=== PATIENT | female | born 1985 | race Caucasian/White ===

== ENCOUNTER 2019-05-13 20:26 | Emergency (ER) | payer OTHER ==
[2019-05-13 21:15] VITALS: BP 126/67; PULSE 83
[2019-05-13 21:52] LABS: ANION GAP 13.9; CHLORIDE,CL 100 mmol/L (101-111); SODIUM,NA 133 mmol/L (135-145)
--- NOTE | 2019-05-13 22:22 | EDM.PDOC ---
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 Approximately 10weeks . Confirmed US done on 04-19 IUP 6 +1 week. Also URI with congestion, question if influenza and that was causing backache Lower Abdomen Pain Score (Numeric/FACES): 8 - Related Data Allergies Allergy/AdvReac Type Severity Reaction Status Date / Time cats Allergy Sneezing Uncoded 05/13/19 21:15 Home Meds: Home Meds Levothyroxine [Synthroid] 125 mcg PO DAILY 07/10/13 [History] PNV95/Ferrous Fumarate/FA [ Multivitamins] 1 each PO DAILY 07/10/13 [ History] Pantoprazole [ProTONIX Granules] 40 mg PO DAILY 07/10/13 [History] Ferrous Sulfate 325 mg PO DAILY 09/17/15 [History] Ascorbate Calcium [Vitamin C] 1,000 mg PO DAILY 02/28/18 [History] Sertraline [Zoloft] 50 mg PO DAILY 03/03/18 [History] Acetaminophen [Tylenol] 650 mg PO Q6H PRN tablet 03/19/18 [Rx] Acetaminophen/oxyCODONE [Percocet 325-5 MG] 1 tab PO Q4H PRN #40 tablet [Rx] Docusate Sodium [Colace] 100 mg PO Q12H PRN cap 03/19/18 [Rx] Ibuprofen [Motrin] 800 mg PO Q8H PRN tablet 03/19/18 [Rx] Past Medical History HEENT History: Reports: None Cardiovascular History: Reports: None Respiratory History: Reports: None Gastrointestinal History: Reports: GERD Genitourinary History: Reports: None 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: , Other (See Below) Other OUTREACH ASSISTANT History: hx abnormal pap, hx herpes Musculoskeletal History: Reports: Other (See Below) Other Musculoskeletal History: spondylolisthesis Neurological History: Reports: Migraines Psychiatric History: Reports: Anxiety, Depression Endocrine/Metabolic History: Reports: Diabetes, Gestational, Hypothyroidism Other Endocrine/Metabolic History: diet controlled gdm Hematologic History: Reports: Anemia Immunologic History: Reports: None Oncologic (Cancer) History: Reports: None Dermatologic History: Reports: Eczema - Infectious Disease History Infectious Disease History: Reports: Chicken Pox, Herpes - Past Surgical History Head Surgeries/Procedures: Reports: None HEENT Surgical History: Reports: Adenoidectomy, Tonsillectomy GI Surgical History: Reports: Colonoscopy, EGD, Hernia Repair/Other Endocrine Surgical History: Reports: None Neurological Surgical History: Reports: None Musculoskeletal Surgical History: Reports: Arthroscopic Knee, Other (See Below) Other Musculoskeletal Surgeries/Procedures:: bilateral leg vein surgery Social & Family History - Family History Family Medical History: Noncontributory - Tobacco Use Smoking Status *Q: Never Smoker Second Hand Smoke Exposure: No - Caffeine Use Caffeine Use: Reports: None - Recreational Drug Use Recreational Drug Use: No - Sexual History Sexual History: Reports: Sexually Active, Single Partner - Living Situation & Occupation Living situation: Reports: , with Family ED ROS GENERAL - Review of Systems Review Of Systems: Comprehensive ROS is negative, except as noted in HPI. ED EXAM - Physical Exam Exam: See Below Exam Limited By: No Limitations General Appearance: Alert, Anxious Eye Exam: Bilateral Eye: EOMI Ears: Normal External Exam, Hearing Grossly Normal, Normal TMs Nose: Normal Inspection, Nasal Drainage Throat/Mouth: Normal Inspection, Normal Lips, Normal Voice Head: Atraumatic, Normocephalic Neck: Normal Inspection, Full Range of Motion Respiratory/Chest: No Respiratory Distress, Lungs Clear, Normal Breath Sounds Cardiovascular: Normal Peripheral Pulses, Regular Rate, Rhythm GI/Abdominal Exam: Normal Bowel Sounds, Soft, Tender (lower abdomen bilateral) (Female) Exam: Normal External Exam, Other (scant old blood in vaginal vault. Cervix posterior, Not directly visulaized. ). No: Tissue Present in Cervix/Vagina Back Exam: Full Range of Motion Extremities: Normal Inspection, No Pedal Edema Neurological: Alert, Oriented, Normal Cognition Psychiatric: Normal Mood, Anxious Skin Exam: Warm, Dry, Intact, Normal Color Course - Vital Signs Last Recorded V/S: Last Vital Signs Temp 98.2 F 05/13/19 21:11 Pulse 83 05/13/19 21:11 Resp 18 05/13/19 21:11 BP 126/67 05/13/19 21:11 Pulse Ox 96 05/13/19 21:11 - Orders/Labs/Meds Orders: Active Orders 24 hr Category Date Time Status OB Ltd 1 or More Fetus [US] Urgent Exams 05/13/19 22:09 Taken Labs: Laboratory Tests 05/13/19 05/13/19 05/13/19 Range/Units 21:22 21:30 21:30 WBC 9.1 (5.0-10.0) 10^3/uL RBC 4.08 L (4.2-5.4) 10^6/uL Hgb 12.7 D (12.0-16.0) g/dL Hct 37.8 (37.0-47.0) % MCV 92.6 D (80-100) fL MCH 31.1 (27.0-34.0) pg MCHC 33.6 (33.0-35.0) g/dL Plt Count 267 (150-450) 10^3/uL Neut % (Auto) 74.9 (42.2-75.2) % Lymph % (Auto) 15.5 L (20.5-50.1) % [place] % (Auto) 8.0 (2-8) % Eos % (Auto) 1.4 (1.0-3.0) % Baso % (Auto) 0.2 (0.0-1.0) % Sodium 133 L (135-145) mmol/L Potassium 3.9 (3.6-5.0) mmol/L Chloride 100 L (101-111) mmol/L Carbon Dioxide 23.0 (21.0-31.0) mmol/L Anion Gap 13.9 BUN 12 (7-18) mg/dL Creatinine 0.5 L (0.6-1.3) mg/dL Est Cr Clr Drug Dosing 147.01 mL/min Estimated GFR (MDRD) > 60 Glucose 99 (74-105) mg/dL Calcium 9.4 (8.4-10.2) mg/dl HCG, Quant (0-25) mIU/ml Beta HCG, Quant mIU/ml Urine Color Light yellow (YELLOW) Urine Appearance Slightly cloudy (CLEAR) Urine pH 6.5 (5.0-9.0) Ur Specific [place] <= 1.005 (1.005-1.030) Urine Protein Negative (NEGATIVE) Urine Glucose (UA) Negative (NEGATIVE) Urine Ketones Negative (NEGATIVE) Urine Occult Blood Small H (NEGATIVE) Urine Nitrite Negative (NEGATIVE) Urine Bilirubin Negative (NEGATIVE) Urine Urobilinogen 0.2 (0.2-1.0) mg/dL Ur Leukocyte Esterase Negative (NEGATIVE) Urine RBC 0-5 /HPF Urine WBC Not seen (0-5/HPF) /HPF Ur Epithelial Cells Few (NOT SEEN) /HPF Urine Bacteria Few (0-FEW/HPF) /HPF 05/13/19 Range/Units 21:30 WBC (5.0-10.0) 10^3/uL RBC (4.2-5.4) 10^6/uL Hgb (12.0-16.0) g/dL Hct (37.0-47.0) % MCV (80-100) fL MCH (27.0-34.0) pg MCHC (33.0-35.0) g/dL Plt Count (150-450) 10^3/uL Neut % (Auto) (42.2-75.2) % Lymph % (Auto) (20.5-50.1) % [place] % (Auto) (2-8) % Eos % (Auto) (1.0-3.0) % Baso % (Auto) (0.0-1.0) % Sodium (135-145) mmol/L Potassium (3.6-5.0) mmol/L Chloride (101-111) mmol/L Carbon Dioxide (21.0-31.0) mmol/L Anion Gap BUN (7-18) mg/dL Creatinine (0.6-1.3) mg/dL Est Cr Clr Drug Dosing mL/min Estimated GFR (MDRD) Glucose (74-105) mg/dL Calcium (8.4-10.2) mg/dl HCG, Quant > 1359 H (0-25) mIU/ml Beta HCG, Quant 70965 mIU/ml Urine Color (YELLOW) Urine Appearance (CLEAR) Urine pH (5.0-9.0) Ur Specific [place] (1.005-1.030) Urine Protein (NEGATIVE) Urine Glucose (UA) (NEGATIVE) Urine Ketones (NEGATIVE) Urine Occult Blood (NEGATIVE) Urine Nitrite (NEGATIVE) Urine Bilirubin (NEGATIVE) Urine Urobilinogen (0.2-1.0) mg/dL Ur Leukocyte Esterase (NEGATIVE) Urine RBC /HPF Urine WBC (0-5/HPF) /HPF Ur Epithelial Cells (NOT SEEN) /HPF Urine Bacteria (0-FEW/HPF) /HPF - Radiology Interpretation Free Text/Narrative:: Name: JASIEL LOVE Age: 33Years F Date: 05/13/2019 SSN: -- : 1985 Study: US LTD ONE OR MORE FETUSES Requesting Physician: TRICIA LEA Images: 32 Addl Studies: Provided Clinical History: Contrast: Without Contrast Medium: Contrast Amount: Contrast Method: Page 1 of 2 PROCEDURE INFORMATION: Exam: US , Limited Exam date and time: 05/13/2019 10:34 PM Age: 33 years old Clinical indication: complicated by abdominal or pelvic pain; Other: Uterine cramping; Gestational age or lmp: 9+6; ; Patient HX: Cramping and spotting TECHNIQUE: Imaging protocol: Real-time ultrasound of the maternal uterus with image documentation. Exam focused on the clinical indication. COMPARISON: No relevant prior studies available. FINDINGS: GESTATION: Gestation: Single live intrauterine embryo. Heart rate: 172 bpm. Placenta: 1.0 x 0.8 x 0.5 cm subchorionic hematoma. BIOMETRY: Estimated gestational age: 9 weeks 6 days. [place]-Rump length: 2.9 cm. IMPRESSION: Single live intrauterine embryo with a sonographic gestational age of 9 weeks 6 days. MARY is 12/13/2019 1.0 x 0.8 x 0.5 cm subchorionic hematoma. JASIEL LOVE | Final Radiology Report CONFIDENTIALITY STATEMENT This report is intended only for use by the referring physician, and only in accordance with law. If you received this in error, call [phone]. Page 2 of 2 Thank you for allowing us to participate in the care of your patient. Dictated and Authenticated by: Bill Ahmadi MD 05/13/2019 11:17 PM Central Time ([place] & [place] - Re-Assessments/Exams Free Text/Narrative Re-Assessment/Exam: Results of US reviewed with patient. Off work until seen by PCP on Wednesday. Departure - Departure Time of Disposition: 23:26 Disposition: Home, Self-Care 01 Condition: Good Clinical Impression: First trimester bleeding URI (upper respiratory infection) Qualifiers: URI type: unspecified viral URI Qualified Code(s): J06.9 - Acute upper respiratory infection, unspecified Subchorionic hematoma in first trimester Qualifiers: Fetus number: single or unspecified fetus Qualified Code(s): O41.8X10 - Other specified disorders of amniotic fluid and membranes, first trimester, not applicable or unspecified - Discharge Information *PRESCRIPTION DRUG MONITORING PROGRAM REVIEWED*: No *COPY OF PRESCRIPTION DRUG MONITORING REPORT IN PATIENT JACQUELINE: No Instructions: Subchorionic Hematoma Forms: ED Department Discharge Additional Instructions: light activity no heavy lifting increase fluids follow up with OB on Wednesday Urgent follow up severe beeding, dizziness or fever Sepsis Event Note - Evaluation Sepsis Screening Result: No Definite Risk - Focused Exam Vital Signs: Vital Signs Temp Pulse Resp BP Pulse Ox 05/13/19 21:11 98.2 F 83 18 126/67 96 Date Exam was Performed: 05/14/19 Time Exam was Performed: 02:45 - My Orders Last 24 Hours: My Active Orders 05/13/19 22:09 OB Ltd 1 or More Fetus [US] Urgent - Assessment/Plan Last 24 Hours: My Active Orders 05/13/19 22:09 OB Ltd 1 or More Fetus [US] Urgent"
== END 2019-05-13 23:35 | disposition home or self-care (01) ==
LOC: DL.ED 20:26
DX: O20.9 Hemorrhage in early pregnancy, unspecified (principal); J06.9 Acute upper respiratory infection, unspecified; O99.511 Diseases of the respiratory system complicating pregnancy, first trimester; O41.8X10 Other specified disorders of amniotic fluid and membranes, first trimester, not applicable or unspecified; O99.611 Diseases of the digestive system complicating pregnancy, first trimester; K21.9 Gastro-esophageal reflux disease without esophagitis; O99.341 Other mental disorders complicating pregnancy, first trimester; F41.9 Anxiety disorder, unspecified; F32.9 Major depressive disorder, single episode, unspecified; O99.281 Endocrine, nutritional and metabolic diseases complicating pregnancy, first trimester; E03.9 Hypothyroidism, unspecified; O24.410 Gestational diabetes mellitus in pregnancy, diet controlled; Z3A.09 9 weeks gestation of pregnancy; Z91.09 Other allergy status, other than to drugs and biological substances; Z79.899 Other long term (current) drug therapy; Z79.890 Hormone replacement therapy
CPT/HCPCS: 36415; 76815; 80048; 81001; 84702; 85025; 87210; 87804; 99284; 99284-25

== ENCOUNTER 2019-05-24 05:54 | Emergency (ER) | payer OTHER ==
[2019-05-24 06:05] VITALS: BP 122/69; PULSE 85
[2019-05-24] MEDS ORDERED: Sodium Chloride 0.9% 10 ML Syringe FLUSH PRN (06:23)
--- NOTE | 2019-05-24 06:41 | EDM.PDOC ---
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 It is approximately 11 weeks gestation 5 para 4. On 05/13/19 the patient had a ultrasound completed in the emergency department for vaginal bleeding was noted to have a subchorionic hemorrhage. Starting earlier this morning she had increasing cramping and then passed a rather large clot. After she passed a clot she had almost complete resolution of the cramping. She still has a small amount of vaginal bleeding that is been kind of steady since her last ultrasound. She does complain of intermittent lightheadedness no weakness or dizziness. NO chest pain SOB or syncope. No flank pain dysuria or urinary frequency. NO fever no chills. Pelvic Pain Score (Numeric/FACES): 7 - Related Data Allergies Allergy/AdvReac Type Severity Reaction Status Date / Time cats Allergy Sneezing Uncoded 05/24/19 05:59 Home Meds: Home Meds Levothyroxine [Synthroid] 125 mcg PO DAILY 07/10/13 [History] PNV95/Ferrous Fumarate/FA [ Multivitamins] 1 each PO DAILY 07/10/13 [ History] Pantoprazole [ProTONIX Granules] 40 mg PO DAILY 07/10/13 [History] Ferrous Sulfate 325 mg PO DAILY 09/17/15 [History] Ascorbate Calcium [Vitamin C] 1,000 mg PO DAILY 02/28/18 [History] Sertraline [Zoloft] 50 mg PO DAILY 03/03/18 [History] Acetaminophen [Tylenol] 650 mg PO Q6H PRN tablet 03/19/18 [Rx] Acetaminophen/oxyCODONE [Percocet 325-5 MG] 1 tab PO Q4H PRN #40 tablet [Rx] Docusate Sodium [Colace] 100 mg PO Q12H PRN cap 03/19/18 [Rx] Ibuprofen [Motrin] 800 mg PO Q8H PRN tablet 03/19/18 [Rx] Past Medical History HEENT History: Reports: None Cardiovascular History: Reports: None Respiratory History: Reports: None Gastrointestinal History: Reports: GERD Genitourinary History: Reports: None 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: , 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 (See Below) 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 FLASH DESIGNER History: hx abnormal pap, hx herpes Musculoskeletal History: Reports: Other (See Below) Other Musculoskeletal History: spondylolisthesis Neurological History: Reports: Migraines Psychiatric History: Reports: Anxiety, Depression Endocrine/Metabolic History: Reports: Diabetes, Gestational, Hypothyroidism Other Endocrine/Metabolic History: diet controlled gdm Hematologic History: Reports: Anemia Immunologic History: Reports: None Oncologic (Cancer) History: Reports: None Dermatologic History: Reports: Eczema - Infectious Disease History Infectious Disease History: Reports: Chicken Pox, Herpes - Past Surgical History Head Surgeries/Procedures: Reports: None HEENT Surgical History: Reports: Adenoidectomy, Tonsillectomy GI Surgical History: Reports: Colonoscopy, EGD, Hernia Repair/Other Endocrine Surgical History: Reports: None Neurological Surgical History: Reports: None Musculoskeletal Surgical History: Reports: Arthroscopic Knee, Other (See Below) Other Musculoskeletal Surgeries/Procedures:: bilateral leg vein surgery Social & Family History - Family History Family Medical History: Noncontributory - Tobacco Use Smoking Status *Q: Never Smoker Second Hand Smoke Exposure: No - Caffeine Use Caffeine Use: Reports: Coffee, Soda - Recreational Drug Use Recreational Drug Use: No - Sexual History Sexual History: Reports: Sexually Active, Single Partner - Living Situation & Occupation Living situation: Reports: , with Family ED ROS GENERAL - Review of Systems Review Of Systems: Comprehensive ROS is negative, except as noted in HPI. ED EXAM, GI/ABD - Physical Exam Exam: See Below Exam Limited By: No Limitations General Appearance: Alert, WD/WN, No Apparent Distress Eyes: Bilateral: EOMI Ears: Normal External Exam, Normal Canal, Normal TMs Nose: Normal Inspection Throat/Mouth: Normal Inspection, Normal Lips, Normal Oropharynx Head: Atraumatic, Normocephalic Neck: Normal Inspection, Supple Respiratory/Chest: No Respiratory Distress, Lungs Clear, No Accessory Muscle Use Cardiovascular: Normal Peripheral Pulses, Regular Rate, Rhythm GI/Abdominal Exam: Normal Bowel Sounds, Soft Back Exam: Normal Inspection Extremities: Normal Inspection, Normal Range of Motion, Normal Capillary Refill Neurological: Alert, Oriented, Normal Cognition, No Motor/Sensory Deficits Psychiatric: Normal Affect, Normal Mood Skin Exam: Warm, Dry, Intact, Normal Color Course - Vital Signs Last Recorded V/S: Last Vital Signs Temp 35.9 C L 05/24/19 06:00 Pulse 85 05/24/19 06:00 Resp 16 05/24/19 06:00 BP 122/69 05/24/19 06:00 Pulse Ox 95 05/24/19 06:00 - Orders/Labs/Meds Orders: Active Orders 24 hr Category Date Time Status Peripheral IV Care [RC] . DIRECTED Care 05/24/19 06:23 Active OB Ltd 1 or More Fetus [US] Urgent Exams 05/24/19 06:41 Taken DRUG SCREEN URINE BIORAD [URCHEM] Stat Lab 05/24/19 06:25 Ordered Ketorolac [Toradol] Med 05/24/19 07:26 Once 30 mg IVPUSH ONETIME ONE Sodium Chloride 0.9% [Saline Flush] Med 05/24/19 06:23 Active 10 ml FLUSH ASDIRECTED PRN Peripheral IV Insertion Adult [OM.PC] Stat Oth 05/24/19 06:23 Ordered Medication Orders Ketorolac Tromethamine (Toradol) 30 mg IVPUSH ONETIME ONE Stop: 05/24/19 07:27 Sodium Chloride (Saline Flush) 10 ml FLUSH ASDIRECTED PRN PRN Reason: Keep Vein Open Last Admin: 05/24/19 06:16 Dose: 10 ml Labs: Laboratory Tests 05/24/19 05/24/19 05/24/19 Range/Units 06:15 06:15 06:15 WBC 9.7 (5.0-10.0) 10^3/uL RBC 4.06 L (4.2-5.4) 10^6/uL Hgb 12.7 (12.0-16.0) g/dL Hct 37.7 (37.0-47.0) % MCV 92.9 (80-100) fL MCH 31.3 (27.0-34.0) pg MCHC 33.7 (33.0-35.0) g/dL Plt Count 319 (150-450) 10^3/uL Neut % (Auto) 69.1 (42.2-75.2) % Lymph % (Auto) 23.6 (20.5-50.1) % [place] % (Auto) 5.9 (2-8) % Eos % (Auto) 1.2 (1.0-3.0) % Baso % (Auto) 0.2 (0.0-1.0) % Sodium 133 L (135-145) mmol/L Potassium 4.1 (3.6-5.0) mmol/L Chloride 99 L (101-111) mmol/L Carbon Dioxide 22.0 (21.0-31.0) mmol/L Anion Gap 16.1 BUN 12 (7-18) mg/dL Creatinine 0.4 L (0.6-1.3) mg/dL Est Cr Clr Drug Dosing 183.77 mL/min Estimated GFR (MDRD) > 60 BUN/Creatinine Ratio 30.00 Glucose 98 (74-105) mg/dL Calcium 9.8 (8.4-10.2) mg/dl Total Bilirubin 0.3 (0.2-1.0) mg/dL AST 27 (10-42) IU/L ALT 29 (10-60) IU/L Alkaline Phosphatase 96 (42-121) IU/L Total Protein 7.5 (6.7-8.2) g/dl Albumin 3.8 (3.2-5.5) g/dl Globulin 3.7 Albumin/Globulin Ratio 1.03 HCG, Quant > 1350 H (0-25) mIU/ml Beta HCG, Quant 33808 mIU/ml Meds: Medications Generic Name Dose Route Start Last Admin Trade Name Freq PRN Reason Stop Dose Admin Ketorolac Tromethamine 30 mg 05/24/19 07:26 Toradol IVPUSH 05/24/19 07:27 ONETIME ONE Sodium Chloride 10 ml 05/24/19 06:23 05/24/19 06:16 Saline Flush FLUSH 10 ml ASDIRECTED PRN Administration Keep Vein Open - Radiology Interpretation Free Text/Narrative:: US per tech no IUP noted some residual blood or clots in the uterus. Miscarriage. - Re-Assessments/Exams Free Text/Narrative Re-Assessment/Exam: 05/24/19 07:15 Report at change of shift given to Dr. Dorman pt is in Ultrasound. 05/24/19 07:31 US miscarriage. Bleeding is almost resolved. Comfort given to the mother and natural course of miscarriage explained to the patient. SHe was comfortable with the plan and her questions answered. Departure - Departure Time of Disposition: 07:28 Disposition: Home, Self-Care 01 Clinical Impression: Miscarriage - Discharge Information Instructions: Pain Medicine Instructions, [id number], Miscarriage Forms: ED Department Discharge Additional Instructions: Tylenol and or Ibuprofen as needed for pain and cramping. If pain not controlled with above [place], 1 tablet every 6 hrs as needed for pain. Caution sedation RX given to the patient. #9 Return to the ED if new or worsening symptoms Recheck with PCP OB if bleeding not slowing or worsening. Sepsis Event Note - Evaluation Sepsis Screening Result: No Definite Risk - Focused Exam Vital Signs: Vital Signs Temp Pulse Resp BP Pulse Ox 05/24/19 06:00 35.9 C L 85 16 122/69 95 Date Exam was Performed: 05/24/19 Time Exam was Performed: 07:28 - My Orders Last 24 Hours: My Active Orders 05/24/19 06:23 Peripheral IV Care [RC] . DIRECTED Sodium Chloride 0.9% [Saline Flush] 10 ml FLUSH ASDIRECTED PRN Peripheral IV Insertion Adult [OM.PC] Stat 05/24/19 06:25 DRUG SCREEN URINE BIORAD [URCHEM] Stat 05/24/19 06:41 OB Ltd 1 or More Fetus [US] Urgent 05/24/19 07:26 Ketorolac [Toradol] 30 mg IVPUSH ONETIME ONE - Assessment/Plan Last 24 Hours: My Active Orders 05/24/19 06:23 Peripheral IV Care [RC] . DIRECTED Sodium Chloride 0.9% [Saline Flush] 10 ml FLUSH ASDIRECTED PRN Peripheral IV Insertion Adult [OM.PC] Stat 05/24/19 06:25 DRUG SCREEN URINE BIORAD [URCHEM] Stat 05/24/19 06:41 OB Ltd 1 or More Fetus [US] Urgent 05/24/19 07:26 Ketorolac [Toradol] 30 mg IVPUSH ONETIME ONE Assessment:: 1st trimester spontaneous miscarriage. Plan: Tylenol and or Ibuprofen as needed for pain and cramping. If pain not controlled with above [place], 1 tablet every 6 hrs as needed for pain. Caution sedation RX given to the patient. #9 Return to the ED if new or worsening symptoms Recheck with PCP OB if bleeding not slowing or worsening.
[2019-05-24 06:49] LABS: ANION GAP 16.1; CHLORIDE,CL 99 mmol/L (101-111); SODIUM,NA 133 mmol/L (135-145)
[2019-05-24] MEDS ORDERED: Ketorolac 30 MG/ML SDV IVPUSH ONE (07:26)
== END 2019-05-24 07:43 | disposition home or self-care (01) ==
LOC: DL.ED 05:54
DX: O03.9 Complete or unspecified spontaneous abortion without complication (principal); K21.9 Gastro-esophageal reflux disease without esophagitis; D64.9 Anemia, unspecified; E03.9 Hypothyroidism, unspecified; F41.9 Anxiety disorder, unspecified; F32.9 Major depressive disorder, single episode, unspecified; Z91.09 Other allergy status, other than to drugs and biological substances; Z79.899 Other long term (current) drug therapy
CPT/HCPCS: 36415; 76815; 80053; 84702; 85025; 96374; 99284; J1885

== ENCOUNTER 2019-10-22 18:41 | Emergency (ER) | payer OTHER ==
[2019-10-22] MEDS ORDERED: Acetaminophen/HYDROcodone 325-10 MG Tab PO ONE ×2 (18:42→23:17)
[2019-10-22 19:02] VITALS: BP 118/66; PULSE 70
[2019-10-22] MEDS ORDERED: Morphine 2 MG/ML SYRINGE IVPUSH ONE ×2 (19:17→21:55)
--- NOTE | 2019-10-22 19:23 | EDM.PDOC ---
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 The patient reports this is her 6th (4 living children, a miscarriage in May). The patient reports she is approximately 12 weeks into her current . Onset: Today Duration: Constant, Getting Worse Location: Reports: Abdomen (crampain), Back (pain) Quality: Reports: Ache Severity: Moderate Improves with: Reports: None Worsens with: Reports: None Context: Reports: Other Associated Symptoms: Reports: No Other Symptoms Lower Abdominal Pain Score (Numeric/FACES): 6 - Related Data Allergies Allergy/AdvReac Type Severity Reaction Status Date / Time cats Allergy Sneezing Uncoded 10/22/19 18:58 Home Meds: Home Meds Levothyroxine [Synthroid] 125 mcg PO DAILY 07/10/13 [History] PNV95/Ferrous Fumarate/FA [ Multivitamins] 1 each PO DAILY 07/10/13 [History] Pantoprazole [ProTONIX Granules] 40 mg PO DAILY 07/10/13 [History] Ferrous Sulfate 325 mg PO DAILY 09/17/15 [History] Ascorbate Calcium [Vitamin C] 1,000 mg PO DAILY 02/28/18 [History] Sertraline [Zoloft] 50 mg PO DAILY 03/03/18 [History] Acetaminophen [Tylenol] 650 mg PO Q6H PRN tablet 03/19/18 [Rx] Acetaminophen/oxyCODONE [Percocet 325-5 MG] 1 tab PO Q4H PRN #40 tablet 03/19/18 [Rx] Docusate Sodium [Colace] 100 mg PO Q12H PRN cap 03/19/18 [Rx] Ibuprofen [Motrin] 800 mg PO Q8H PRN tablet 03/19/18 [Rx] Past Medical History HEENT History: Reports: None Cardiovascular History: Reports: None Respiratory History: Reports: None Gastrointestinal History: Reports: GERD Genitourinary History: Reports: None 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: Reports: , Spontaneous , Other (See Below) Other 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: hx abnormal pap, hx herpes Musculoskeletal History: Reports: Other (See Below) Other Musculoskeletal History: spondylolisthesis Neurological History: Reports: Migraines Psychiatric History: Reports: Anxiety, Depression Endocrine/Metabolic History: Reports: Diabetes, Gestational, Hypothyroidism Other Endocrine/Metabolic History: diet controlled gdm Hematologic History: Reports: Anemia Immunologic History: Reports: None Oncologic (Cancer) History: Reports: None Dermatologic History: Reports: Eczema - Infectious Disease History Infectious Disease History: Reports: Chicken Pox, Herpes - Past Surgical History Head Surgeries/Procedures: Reports: None HEENT Surgical History: Reports: Adenoidectomy, Tonsillectomy GI Surgical History: Reports: Colonoscopy, EGD, Hernia Repair/Other Endocrine Surgical History: Reports: None Neurological Surgical History: Reports: None Musculoskeletal Surgical History: Reports: Arthroscopic Knee, Other (See Below) Other Musculoskeletal Surgeries/Procedures:: bilateral leg vein surgery Social & Family History - Family History Family Medical History: Noncontributory - Tobacco Use Smoking Status *Q: Never Smoker - Caffeine Use Caffeine Use: Reports: None - Recreational Drug Use Recreational Drug Use: No - Sexual History Sexual History: Reports: Sexually Active, Single Partner - Living Situation & Occupation Living situation: Reports: , with Family ED ROS GENERAL - Review of Systems Review Of Systems: Comprehensive ROS is negative, except as noted in HPI. ED EXAM - Physical Exam Exam: See Below Exam Limited By: No Limitations General Appearance: Alert, WD/WN, Moderate Distress, Obese Eye Exam: Bilateral Eye: EOMI, Normal Inspection, PERRL Ears: Normal External Exam, Normal Canal, Hearing Grossly Normal, Normal TMs Nose: Normal Inspection, Normal Mucosa, No Blood Throat/Mouth: Normal Inspection, Normal Lips, Normal Teeth, Normal Gums, Normal Oropharynx, Normal Voice, No Airway Compromise Head: Atraumatic, Normocephalic Neck: Normal Inspection, Supple, Non-Tender, Full Range of Motion Respiratory/Chest: No Respiratory Distress, Lungs Clear, Normal Breath Sounds, No Accessory Muscle Use, Chest Non-Tender Cardiovascular: Normal Peripheral Pulses, Regular Rate, Rhythm, No Edema, No Gallop, No JVD, No Murmur, No Rub GI/Abdominal Exam: Normal Bowel Sounds, Soft, Tender (lower abdomen) Rectal Exam: Deferred Back Exam: Paraspinal Tenderness Extremities: Normal Inspection, Normal Range of Motion, Non-Tender, Normal Capillary Refill, No Pedal Edema Neurological: Alert, Oriented, CN II-XII Intact, Normal Cognition Psychiatric: Normal Affect, Normal Mood Skin Exam: Warm, Dry, Intact, Normal Color, No Rash Lymphatic: No Adenopathy Course - Vital Signs Last Recorded V/S: Last Vital Signs Temp 36.1 C 10/22/19 18:58 Pulse 70 10/22/19 18:58 Resp 20 10/22/19 18:58 BP 118/66 10/22/19 18:58 Pulse Ox 97 10/22/19 18:58 - Orders/Labs/Meds Orders: Active Orders 24 hr Category Date Time Status OB Transvaginal [US] Urgent Exams 10/22/19 20:39 Ordered Labs: Laboratory Tests 10/22/19 10/22/19 10/22/19 Range/Units 19:29 19:29 19:29 WBC 8.1 (5.0-10.0) 10^3/uL RBC 3.61 L (4.2-5.4) 10^6/uL Hgb 11.4 L (12.0-16.0) g/dL Hct 34.6 L (37.0-47.0) % MCV 95.8 (80-100) fL MCH 31.6 (27.0-34.0) pg MCHC 32.9 L (33.0-35.0) g/dL Plt Count 250 (150-450) 10^3/uL Neut % (Auto) 80.2 H (42.2-75.2) % Lymph % (Auto) 13.3 L (20.5-50.1) % Centre % (Auto) 4.9 (2-8) % Eos % (Auto) 1.4 (1.0-3.0) % Baso % (Auto) 0.2 (0.0-1.0) % Sodium 135 L (136-145) mmol/L Potassium 3.8 (3.5-5.1) mmol/L Chloride 101 (98-107) mmol/L Carbon Dioxide 27 (21-32) mmol/L Anion Gap 10.8 (7-13) mEq/L BUN 8 (7-18) mg/dL Creatinine 0.57 (0.55-1.02) mg/dL Est Cr Clr Drug Dosing TNP Estimated GFR (MDRD) > 60 BUN/Creatinine Ratio 14.0 (No establ ref range) Glucose 91 (74-99) mg/dL Calcium 8.5 (8.5-10.1) mg/dL Total Bilirubin 0.2 (0.2-1.0) mg/dL AST 20 (15-37) U/L ALT 32 (14-59) U/L Alkaline Phosphatase 94 (46-116) U/L Total Protein 7.0 (6.4-8.2) g/dL Albumin 3.3 L (3.4-5.0) g/dL Globulin 3.7 Albumin/Globulin Ratio 0.89 HCG, Quant (0-6) mIU/mL Blood Type (Referred) A pos Rhogam Indicated No Blood Bank Comment Chi-dl 10/22/19 Range/Units 19:29 WBC (5.0-10.0) 10^3/uL RBC (4.2-5.4) 10^6/uL Hgb (12.0-16.0) g/dL Hct (37.0-47.0) % MCV (80-100) fL MCH (27.0-34.0) pg MCHC (33.0-35.0) g/dL Plt Count (150-450) 10^3/uL Neut % (Auto) (42.2-75.2) % Lymph % (Auto) (20.5-50.1) % Centre % (Auto) (2-8) % Eos % (Auto) (1.0-3.0) % Baso % (Auto) (0.0-1.0) % Sodium (136-145) mmol/L Potassium (3.5-5.1) mmol/L Chloride (98-107) mmol/L Carbon Dioxide (21-32) mmol/L Anion Gap (7-13) mEq/L BUN (7-18) mg/dL Creatinine (0.55-1.02) mg/dL Est Cr Clr Drug Dosing Estimated GFR (MDRD) BUN/Creatinine Ratio (No establ ref range) Glucose (74-99) mg/dL Calcium (8.5-10.1) mg/dL Total Bilirubin (0.2-1.0) mg/dL AST (15-37) U/L ALT (14-59) U/L Alkaline Phosphatase (46-116) U/L Total Protein (6.4-8.2) g/dL Albumin (3.4-5.0) g/dL Globulin Albumin/Globulin Ratio HCG, Quant 73624 H (0-6) mIU/mL Blood Type (Referred) Rhogam Indicated Blood Bank Comment Meds: Medications Discontinued Medications Generic Name Dose Route Start Last Admin Trade Name Maria G PRN Reason Stop Dose Admin Hydrocodone Bitart/Acetaminophen 1 tab 10/22/19 23:17 [place] 325-10 Mg PO 10/22/19 23:18 ONETIME ONE Morphine Sulfate 2 mg 10/22/19 19:17 10/22/19 19:22 Morphine IVPUSH 10/22/19 19:18 2 mg ONETIME ONE Administration Morphine Sulfate 2 mg 10/22/19 21:55 10/22/19 22:01 Morphine IVPUSH 10/22/19 21:56 2 mg ONETIME ONE Administration Departure - Departure Time of Disposition: 23:18 Disposition: Home, Self-Care 01 Condition: Fair Clinical Impression: Miscarriage - Discharge Information *PRESCRIPTION DRUG MONITORING PROGRAM REVIEWED*: Not Applicable *COPY OF PRESCRIPTION DRUG MONITORING REPORT IN PATIENT JACQUELINE: Not Applicable Instructions: Miscarriage, [id number] Forms: ED Department Discharge Care Plan Goals: The patient was advised of the examination, lab and ultrasound results during the visit. The patient was given 2 doses of IV Morphine (2 mg) while in the ED and a dose of [place] for pain management. The patient was discharged with [place] (10/325) #2 to take 1 by mouth every 6 hours as needed for pain. The patient was encouraged to follow-up with her primary care facility this week for continued evaluation and further management. If the patient has any additional symptoms or concerns, the patient should either return to the emergency department or visit her primary care facility. Sepsis Event Note (ED) - Evaluation Sepsis Screening Result: No Definite Risk - Focused Exam Vital Signs: Vital Signs Temp Pulse Resp BP Pulse Ox 10/22/19 18:58 36.1 C 70 20 118/66 97 - My Orders Last 24 Hours: My Active Orders 10/22/19 20:39 OB Transvaginal [US] Urgent - Assessment/Plan Last 24 Hours: My Active Orders 10/22/19 20:39 OB Transvaginal [US] Urgent
[2019-10-22 19:57] LABS: ANION GAP 10.8 mEq/L (7-13); CHLORIDE,CL 101 mmol/L (98-107); SODIUM,NA 135 mmol/L (136-145)
--- NOTE | 2019-10-22 23:09 | US ---
PROCEDURE INFORMATION: Exam: US , Limited and US , Transvaginal Exam date and time: 10/22/2019 9:18 PM Age: 33 years old Clinical indication: Lmp or gestational age (in weeks): N/a; Other: Miscarriage; Additional info: PT is bleeding heavily and cramping. She states she passed poc a day ago. TECHNIQUE: Imaging protocol: Real-time ultrasound of the maternal uterus with image documentation. Transvaginal imaging was used for better evaluation of the fetus and adnexa. Exam focused on the clinical indication. COMPARISON: No relevant prior studies available. FINDINGS: Gestation: No intrauterine gestational sac. MATERNAL: Uterus: Uterus approximately 14.3 x 6.7 x 7.4 cm on transabdominal images (my measurements). Endometrium not well demonstrated, but probably enlarged and containing heterogeneous material with a questionable diameter of 2 cm (my measurement). Echogenic material with a depth of 13 mm in the superior aspect of the endocervical canal. Right adnexa: No large right adnexal mass. Obscuration of the right ovary by bowel. Left adnexa: Left ovary 3 x 1.7 x 1.8 cm containing no mass. Intraperitoneal space: No apparent free fluid. IMPRESSION: 1. Enlarged uterus containing no intrauterine gestational sac. Apparent heterogeneous material within the enlarged endometrial cavity suggesting residual products of conception/hemorrhage. 2. Normal appearance of the left ovary. Right ovary obscured by bowel. No large right adnexal mass.
[2019-10-22] MEDS ORDERED: Acetaminophen/HYDROcodone 325-10 MG Tab ONE (23:24)
== END 2019-10-22 23:29 | disposition home or self-care (01) ==
LOC: DL.ED 18:41
DX: O03.9 Complete or unspecified spontaneous abortion without complication (principal); K21.9 Gastro-esophageal reflux disease without esophagitis; F41.9 Anxiety disorder, unspecified; F32.9 Major depressive disorder, single episode, unspecified; E03.9 Hypothyroidism, unspecified; Z91.048 Other nonmedicinal substance allergy status; Z79.899 Other long term (current) drug therapy
CPT/HCPCS: 36415; 76815; 76817; 80053; 84702; 85025; 96374; 96376; 99284; A9270; J2270; 99283